=== PATIENT | female | born 1960 | race Two or more races ===

== ENCOUNTER 2017-01-07 12:11 | Emergency (ER) | payer MEDICAID ==
[~2017-01-07] VITALS: Ht 160 cm; Wt 87.1 kg
[~2017-01-07 12:11] MED LIST: ASPIR 8181 MG PO; GLU5 PO; METFORMIN HCL1000 MG PO; PRINIVIL10 MG PO; PROAIR HFA0.09 MG/A1 INH; ZITHROMAX Z-PA250 MG PO; ZOC10 PO
[2017-01-07 15:00] VITALS: BP 128/70
== END 2017-01-07 15:00 | disposition home or self-care (01) ==
LOC: ED 12:11
PROC: 3E0233Z Introduction of Anti-inflammatory into Muscle, Percutaneous Approach (ICD-10-PCS; principal; 2017-01-07)
PROC: 3E0F7GC Introduction of Other Therapeutic Substance into Respiratory Tract, Via Natural or Artificial Opening (ICD-10-PCS; 2017-01-07)
DX: J20.9 Acute bronchitis, unspecified (principal); J98.01 Acute bronchospasm; E11.65 Type 2 diabetes mellitus with hyperglycemia; I10 Essential (primary) hypertension
CPT/HCPCS: J2930; J7613; J7644

== ENCOUNTER 2017-01-16 12:05 | Emergency (ER) | payer MEDICAID ==
[2017-01-16 13:03] LABS: PLATELET COUNT 167 x10^3mcL (130-400)
[2017-01-16 13:08] LABS: RED CELL DISTRIBUTION WIDTH 14.6 % (11.5-14.5)
[2017-01-16 13:11] LABS: CALCIUM 8.6 mg/dL (8.5-10.1); CARBON DIOXIDE 25.1 mmol/L (21-32); CHLORIDE SERUM 104 mmol/L (98-107); CREATININE SERUM 0.9 mg/dL (0.6-1.0); GFR1 > 60 mL/min; GLUCOSE SERUM 416 mg/dL (74-106); POTASSIUM SERUM 3.9 mmol/L (3.5-5.1); SODIUM SERUM 140 mmol/L (136-145)
[2017-01-16 13:15] LABS: ALBUMIN 3.2 g/dL (3.4-5.0); ALKALINE PHOSPHATASE 130 U/L (46-116); ALT/SGPT 26 U/L (14-59); AST/SGOT 12 U/L (15-37); BILIRUBIN TOTAL 0.6 mg/dL (0.20-1.00); CHOLESTEROL 197 mg/dL (<200); HDL CHOLESTEROL 45 mg/dL (40-60); PHOSPHOROUS 2.8 mg/dL (2.5-4.9); TOTAL PROTEIN, SERUM 6.8 g/dL (6.4-8.2); URIC ACID 3.9 mg/dL (2.6-6.0)
[2017-01-16 13:21] LABS: BAND NEUTROPHIL 7 % (0-10); BASOPHIL 0 % (0-2); MONOCYTE 5 % (0-7); PLATELET MORPHOLOGY PLATELETS NORMAL; SEGMENTED NEUTROPHILS 74 % (37-75)
[2017-01-16 15:40] VITALS: BP 110/67
== END 2017-01-16 15:40 | disposition home or self-care (01) ==
LOC: ED 12:05
PROVIDERS: Emergency Medicine
DX: E11.65 Type 2 diabetes mellitus with hyperglycemia (principal); I10 Essential (primary) hypertension
CPT/HCPCS: 83880; J1815; J7030

== ENCOUNTER 2017-03-31 17:51 | Emergency (ER) | payer MEDICAID ==
[2017-03-31 18:03] VITALS: BP 127/69
== END 2017-03-31 20:14 | disposition home or self-care (01) ==
LOC: ED 17:51
DX: N39.0 Urinary tract infection, site not specified (principal); I10 Essential (primary) hypertension; E11.9 Type 2 diabetes mellitus without complications; N76.0 Acute vaginitis; R51 Headache; J02.9 Acute pharyngitis, unspecified; Z79.899 Other long term (current) drug therapy; Z79.82 Long term (current) use of aspirin; Z79.4 Long term (current) use of insulin; Z79.84 Long term (current) use of oral hypoglycemic drugs
CPT/HCPCS: J0696

== ENCOUNTER 2018-07-10 21:08 | Emergency (ER) | payer MEDICAID ==
[2018-07-10 21:11] VITALS: Ht 157.5 cm
[2018-07-10 23:03] VITALS: BP 128/74
== END 2018-07-10 23:03 | disposition home or self-care (01) ==
LOC: ED 21:08
DX: L60.0 Ingrowing nail (principal); I10 Essential (primary) hypertension; E11.9 Type 2 diabetes mellitus without complications; Z98.890 Other specified postprocedural states
CPT/HCPCS: J1885; J2001

== ENCOUNTER 2019-04-16 19:55 | Emergency (ER) | payer MEDICAID ==
[~2019-04-16] VITALS: Ht 162.6 cm; Wt 86.8 kg
[2019-04-16 20:03] VITALS: Ht 162.6 cm; Wt 86.8 kg
[2019-04-16 21:07] LABS: UA SPECIFIC GRAVITY 1.025 (1.005-1.035); microscopic required? YES; urine erythrocyte NEGATIVE (NEGATIVE)
[2019-04-16 21:20] LABS: BASOPHIL % 0.2 % (0-2); PLATELET COUNT 182 x10^3mcL (130-400); RED CELL DISTRIBUTION WIDTH 13.5 % (11.5-14.5)
[2019-04-16 21:46] LABS: CALCIUM 8.9 mg/dL (8.5-10.1); CARBON DIOXIDE 23.9 mmol/L (21-32); CHLORIDE SERUM 106 mmol/L (98-107); CREATININE SERUM 0.9 mg/dL (0.6-1.0); GFR1 > 60 mL/min; GLUCOSE SERUM 250 mg/dL (74-106); POTASSIUM SERUM 3.7 mmol/L (3.5-5.1); SODIUM SERUM 141 mmol/L (136-145)
[2019-04-16 21:49] LABS: ALKALINE PHOSPHATASE 104 U/L (46-116); ALT/SGPT 17 U/L (14-59); AMYLASE 31 U/L (25-115); AST/SGOT 11 U/L (15-37); BILIRUBIN TOTAL 0.34 mg/dL (0.20-1.00); LIPASE 74 IU/L (73-393); MAGNESIUM 1.6 mg/dL (1.8-2.4); TOTAL PROTEIN, SERUM 6.7 g/dL (6.4-8.2)
[2019-04-17 00:01] VITALS: BP 100/64
== END 2019-04-17 00:39 | disposition home or self-care (01) ==
LOC: ED 19:55
PROVIDERS: Emergency Medicine
DX: A08.4 Viral intestinal infection, unspecified (principal); N39.0 Urinary tract infection, site not specified; E83.42 Hypomagnesemia; E11.9 Type 2 diabetes mellitus without complications; I10 Essential (primary) hypertension; Z98.890 Other specified postprocedural states
CPT/HCPCS: 82962; J0696; J1200; J1885; J2765; J3475; J7030; J7060; Q0092

== ENCOUNTER 2020-07-23 16:24 | Emergency (ER) | payer MEDICAID ==
[~2020-07-23] VITALS: Ht 157.5 cm; Wt 78.0 kg
[2020-07-23 16:32] VITALS: Ht 157.5 cm; Wt 78.0 kg
[2020-07-23 19:24] VITALS: BP 100/58
== END 2020-07-23 19:24 | disposition home or self-care (01) ==
LOC: ED 16:24
DX: N39.0 Urinary tract infection, site not specified (principal); I10 Essential (primary) hypertension; E11.9 Type 2 diabetes mellitus without complications; Z98.890 Other specified postprocedural states

== ENCOUNTER 2020-07-30 09:58 | Emergency (ER) | payer MEDICAID ==
[~2020-07-30] VITALS: Ht 157.5 cm; Wt 77.6 kg
[2020-07-30 10:13] VITALS: Ht 157.5 cm; Wt 77.6 kg
[2020-07-30 11:01] LABS: UA SPECIFIC GRAVITY >=1.030 (1.005-1.035); microscopic required? YES; urine erythrocyte NEGATIVE (NEGATIVE)
[2020-07-30 12:43] VITALS: BP 105/62
== END 2020-07-30 12:43 | disposition home or self-care (01) ==
LOC: ED 09:58
PROVIDERS: Emergency Medicine
DX: N39.0 Urinary tract infection, site not specified (principal); I10 Essential (primary) hypertension; E11.9 Type 2 diabetes mellitus without complications; Z98.890 Other specified postprocedural states
CPT/HCPCS: 87491; 87591